=== PATIENT | female | born 1975 ===

== ENCOUNTER 2019-01-19 09:42 | Outpatient (CLI) | payer OTHER ==
--- NOTE | 2019-01-19 10:54 | ULT ---
LEFT BREAST ULTRASOUND: History: Palpable mass in the 4 o'clock position of the left breast approximately 1 cm from the nippl e. Patient has bilateral saline breast implants placed approximately 14 years ago. Technique: Multiplanar grayscale and color doppler images were obtained in a left breast ultrasound. FINDINGS: At the 4 o'clock position of the left breast, the patient has normal appearing breast parenchyma. The patient has very thin breast parenchyma overlying here saline implant. At the area of palpable abnor mality, there is a slight irregularity in the implant which represents the patient's fill valve for t he saline implant. This is most likely the abnormality that the patient is feeling. IMPRESSION: BIRADS category 2 - benign findings. Annual screening mammography is recommended. POS: TIA
--- NOTE | 2019-01-19 11:14 | MMO ---
Bilateral MAMMO Bilat Diag [facility]. CLINICAL HISTORY: Patient is 44 years old and is seen for diagnostic exam. The patient has the following family history of breast cancer: maternal grandmother, malignant (generic) and mother, malignant (generic). The patient has no personal history of cancer. The patient has a history of bilateral Implants at age 30. VIEWS: The views performed were: bilateral craniocaudal with tomosynthesis; bilateral mediolateral oblique with tomosynthesis; bilateral mediolateral; and bilateral Implant displaced. FILMS COMPARED: The present examination has been compared to a prior imaging study performed at [facility] on 01/19/2019. MAMMOGRAM FINDINGS: The breasts are extremely dense, which may lower the sensitivity of mammography. There are bilateral pre-pectoral saline implants. Normal implants are present.. There are no suspicious masses, suspicious calcifications, or new areas of architectural distortion. IMPRESSION: THERE IS NO MAMMOGRAPHIC EVIDENCE OF MALIGNANCY. A ROUTINE FOLLOW-UP MAMMOGRAM IN 1 YEAR IS RECOMMENDED. THE RESULTS OF THIS EXAM WERE SENT TO THE PATIENT. ACR BI-RADS Category 2 - Benign finding MAMMOGRAPHY NOTE: 1. A negative mammogram report should not delay a biopsy if a dominant of clinically suspicious mass is present. 2. Approximately 10% to 15% of breast cancers are not detected by mammography. 3. Adenosis and dense breasts may obscure an underlying neoplasm.
== END 2019-01-19 09:43 | disposition home or self-care (01) ==
LOC: BICMAMMO 09:42
DX: N63.20 Unspecified lump in the left breast, unspecified quadrant (principal); Z98.82 Breast implant status; Z80.3 Family history of malignant neoplasm of breast
CPT/HCPCS: 77066; G0279